=== PATIENT | male | born 1970 | race Caucasian/White ===

== ENCOUNTER 2023-10-31 10:46 | Emergency (ER) | payer OTHER ==
--- OUTSIDE RECORDS SUMMARY | 2023-10-31 10:49 | XMS REPORT | Continuity of Care Document ---
Author Name Unknown Address [address] [place] [address] Abhay. [address] [place] [address] [facility] thconnect Address [address] [facility] Ab[address]. 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 [id number] [place] [id number] 2018 00:00:00 Problems Condition Name Condition Details Condition Category Status Onset Date Resolution Date Last Treatment Date Treating Clinician Comments Source Type 1 diabetes mellitus Type 1 Diabetes Mellitus Problem Active 04-13 00:00: 00 [facility] Impotence Impotence Problem Active 2018-02 00:00: 00 [facility] Hyperlipid emia Hyperlipid emia Problem Active 04-21 00:00: 00 [facility] Hypertensi ve disorder Hypertensi ve Disorder Problem Active 04-21 00:00: 00 [facility] Clinical finding Clinical Finding Problem Active 04-21 00:00: 00 [facility] Social History Smoking Status Start Date Stop Date Source Former Smoker [facility] Light Tobacco Smoker [facility] Medications Ordered Medication Name Filled Medication Name Start Date Stop Date Current Medication? Ordering Clinician Indication Dosage Frequency Signature (SIG) Comments Components Source Novolin N NPH U-100 Insulin isophane 100 unit/mL subcutaneou s susp Inject 30 units every day by subcutaneou s route. Novolin N NPH U-100 Insulin isophane 100 unit/mL subcutaneou s susp Inject 30 units every day by subcutaneou s route. No 30unit( s) Q1D Novolin N NPH U-100 Insulin isophane 100 unit/mL subcutaneo us susp Inject 30 units every day by subcutaneo us route. [facility] Novolin R Regular U-100 Insulin 100 unit/mL injection solution sliding scale Novolin R Regular U-100 Insulin 100 unit/mL injection solution sliding scale No Novolin R Regular U-100 Insulin 100 unit/mL injection solution sliding scale [facility] Novolog U-100 Insulin aspart 100 unit/mL subcutaneou s solution Use with insulin pump : TDD 100 Novolog U-100 Insulin aspart 100 unit/mL subcutaneou s solution Use with insulin pump : TDD 100 No Novolog U-100 Insulin aspart 100 unit/mL subcutaneo us solution Use with insulin pump : TDD 100 [facility] e Vital Signs Vital Name Observation Time Observation Value Comments S ource BP Diastolic 2021-09-13 00:00:00 84 mm[Hg] [facility] Height 2021-09-13 00:00:00 70.2 [in_i] [facility] BMI (Body Mass Index) 2021-09-13 00:00:00 21.7 kg/m2 [facility] BP Systolic 2021-09-13 00:00:00 128 mm[Hg] [facility] Body Weight 2021-09-13 00:00:00 2432 [oz_av] [facility] BP Diastolic 2020-04-13 00:00:00 77 mm[Hg] [facility] Height 2020-04-13 00:00:00 69 [in_i] [facility] BMI (Body Mass Index) 2020-04-13 00:00:00 25.1 kg/m2 [facility] BP Systolic 2020-04-13 00:00:00 115 mm[Hg] [facility] Body Weight 2020-04-13 00:00:00 170 [lb_av] [facility] Plan of Care Planned Activity Planned Date Details Comments Source Diagnostic Test Pending 2021-09-13 00:00:00 lipid panel, serum [code = lipid panel, serum] [facility] Diagnostic Test Pending 2021-09-13 00:00:00 CMP, serum or plasma [code = CMP, serum or plasma] [facility] Diagnostic Test Pending 2021-09-13 00:00:00 CBC w/ auto diff [code = CBC w/ auto diff] [facility] Diagnostic Test Pending 2021-09-13 00:00:00 TSH, serum or plasma [code = TSH, serum or plasma] [facility] Diagnostic Test Pending 2021-09-13 00:00:00 HbA1c (hemoglobin A1c), blood [code = HbA1c (hemoglobin A1c), blood] [facility] Diagnostic Test Pending 2021-09-13 00:00:00 urinalysis complete, reflex culture [code = urinalysis complete, reflex culture] [facility] Diagnostic Test Pending 2021-09-13 00:00:00 PSA, serum or plasma [code = PSA, serum or plasma] [facility] Diagnostic Test Pending 2020-04-13 00:00:00 CMP, serum or plasma [code = CMP, serum or plasma] [facility] Diagnostic Test Pending 2020-04-13 00:00:00 microalbumin/creati nine, mass ratio, urine [code = microalbumin/creati nine, mass ratio, urine] [facility] Diagnostic Test Pending 2020-04-13 00:00:00 TSH, serum or plasma [code = TSH, serum or plasma] [facility] Diagnostic Test Pending 2020-04-13 00:00:00 T4, free, serum [code = T4, free, serum] [facility] Diagnostic Test Pending 2020-04-13 00:00:00 CBC w/ auto diff [code = CBC w/ auto diff] [facility] Diagnostic Test Pending 2020-04-13 00:00:00 lipid panel, serum [code = lipid panel, serum] [facility] Diagnostic Test Pending 2020-04-13 00:00:00 C-peptide, serum [code = C-peptide, serum] [facility] Diagnostic Test Pending 2020-04-13 00:00:00 diabetes panel, serum [code = diabetes panel, serum] [facility] Instructions [facility] Encounters Start Date/Time End Date/Time Encounter Type Admission Type Attending Clinicians Care Facility Care Department Encounter ID Source 2021-09-21 00:00:00 2021-09-21 00:00:00 Outpatient Shield [facility] [id number] [facility] 2021-09-14 00:00:00 2021-09-14 00:00:00 Outpatient Shield [facility] [id number] [facility] 2021-09-13 10:46:00 2021-09-13 10:46:00 Outpatient Shield [facility] [id number] [facility] 2021-09-13 00:00:00 2021-09-13 00:00:00 Danii Swenson, DISH UP PERSON: [address] [facility] [address] [address] , Ph. [facility] [id number] [facility] 2021-09-09 01:34:00 2021-09-09 01:34:00 Outpatient Shield [facility] [id number] [facility] 2020-05-01 09:44:00 2020-05-01 09:44:00 Outpatient Daniel_T VFP [facility]FP [id number] [facility] 2020-04-29 11:29:00 2020-04-29 11:29:00 Outpatient Daniel_T VFP VFP [id number] [facility] 2020-04-25 01:03:00 2020-04-25 01:03:00 Outpatient Daniel_T VFP VFP [id number] [facility] 2020-04-15 07:15:00 2020-04-15 07:15:00 Outpatient Daniel_T VFP VFP [id number] [facility] 2020-04-13 05:54:00 2020-04-13 05:54:00 Outpatient Daniel_T VFP VFP [id number] [facility] 2020-04-13 00:00:00 2020-04-13 00:00:00 Luiz Diallo MD: [id number], [address], [place] [address] , Ph. P [place] - [id number] [facility] 2020-01-13 03:11:00 2020-01-13 03:11:00 Outpatient Yoel_Tania [facility] [id number] [facility]
[2023-10-31 11:33] LABS: Absolute Eosinophils 0.2 K/uL (0-0.5); Absolute Lymphocytes (CBC) 1.1 K/uL (0.7-4.9); Absolute Monocytes 0.5 K/uL (0.1-1.3); Absolute Neutrophil 6.1 K/uL (1.8-8.0); Basophils % 0.6 % (0-1.3); Eosinophils % 1.9 % (0-4.4); Hematocrit 43.2 % (39.6-49.0); Hemoglobin 14.1 g/dL (13.6-17.9); MCH 30.6 pg (27.0-35.0); MCHC 32.6 g/dL (32.0-36.0); MCV 93.9 fL (80-100); Monocytes % 5.7 % (3.3-12.3); Neutrophils % 77.8 % (41.7-73.7); Platelets 279 thou/uL (152-406); Red Cell Distribution Width 12.8 % (12.1-15.2)
[2023-10-31 11:50] LABS: BUN Blood Urea Nitrogen 12 mg/dL (7-18); Bicarbonate 25 mEq/L (21-32); Glomerular Filtration Rate 84 ml/min (=/>90); Glucose Level 319 mg/dL (74-106); Sodium Level 135 mEq/L (136-145)
[2023-10-31 11:52] LABS: Troponin High Sensitivity < 3.0 pg/mL (<58.9)
--- NOTE | 2023-10-31 12:11 | ER ---
Nurse's Notes [facility] Name: Cirilo Venegas Age: 53 yrs Sex: Male : 1970 Arrival Date: 10/31/2023 Time: 10:46 Bed 5 Private MD: Diagnosis: Vasovagal syncope Presentation: 10/30 10:50 Chief complaint: EMS states: Pt brought in via EMS from [facility] for syncopal episode. dd2 Per EMS, Pt was at the clinic for treatment and received a Rocephin IM inj to the L Buttocks and passed out. When pt came to, he was diaphoretic. Nurse was scared it was an anaphylactic reaction and administered EPI 0.31 mg. Pt denies, itching, rash or sob. Coronavirus screen: At this time, the client does not indicate any symptoms associated with coronavirus-19. Ebola Screen: No symptoms or risks identified at this time. Initial Sepsis Screen: Does the patient meet any 2 criteria? No. Patient's initial sepsis screen is negative. Does the patient have a suspected source of infection? No. Patient's initial sepsis screen is negative. Risk Assessment: Do you want to hurt yourself or someone else? Patient reports no desire to harm self or others. Onset of symptoms was October 31, 2023. Care prior to arrival: Medication(s) given: Epi 0.31 mg [facility] IV initiated. 20 GA, in the right forearm, Glucose check: 247. 10:50 Method Of Arrival: EMS: [facility] dd2 10:50 Acuity: JOSE 3 dd2 Triage Assessment: 10:57 General: Appears in no apparent distress. Behavior is calm, cooperative, appropriate dd2 for age. Pain: Denies pain. EENT: No deficits noted. No signs and/or symptoms were reported regarding the EENT system. Neuro: Level of Consciousness is awake, alert, obeys commands, Oriented to person, place, time, situation, Appropriate for age Reports a syncopal episode. Cardiovascular: No deficits noted. Denies chest pain. Respiratory: No deficits noted. Airway is patent Respiratory effort is even, unlabored, Respiratory pattern is regular, symmetrical. GI: No deficits noted. No signs and/or symptoms were reported involving the gastrointestinal system. : No deficits noted. Derm: No deficits noted. No signs and/or symptoms reported regarding the dermatologic system. Musculoskeletal: No deficits noted. No signs and/or symptoms reported regarding the musculoskeletal system. Historical: - Allergies: 10:57 No Known Allergies; dd2 - PMHx: 10:57 Diabetes mellitus; dd2 - Immunization history:: Adult Immunizations unknown. - Infectious Disease History:: Denies. - Social history:: Smoking status: Patient denies any tobacco usage or history of. Screenin:08 [facility] ED Fall Risk Assessment (Adult) History of falling in the last 3 months, dd2 including since admission Yes- single mechanical fall (1 pt) Confusion or Disorientation No (0 pts) Intoxicated or Sedated No (0 pts) Impaired Gait No (0 pts) Mobility Assist Device Used No (0 pt) Altered Elimination No (0 pt) Score/Fall Risk Level 0 - 2 = Low Risk Oriented to surroundings, Maintained a safe environment, Hourly rounding (assess needs \T\ fall precautionary measures) done. Abuse screen: Denies threats or abuse. Nutritional screening: No deficits noted. Tuberculosis screening: No symptoms or risk factors identified. Assessment: 11:08 General: Appears in no apparent distress. Behavior is calm, cooperative, appropriate dd2 for age. Pain: Denies pain. Neuro: No deficits noted. Level of Consciousness is awake, alert, obeys commands, Oriented to person, place, time, situation, Appropriate for age. Cardiovascular: No deficits noted. Rhythm is sinus tachycardia. Respiratory: No deficits noted. Airway is patent Respiratory effort is even, unlabored. GI: No deficits noted. No signs and/or symptoms were reported involving the gastrointestinal system. : No deficits noted. No signs and/or symptoms were reported regarding the genitourinary system. EENT: No deficits noted. No signs and/or symptoms were reported regarding the EENT system. Derm: No deficits noted. No signs and/or symptoms reported regarding the dermatologic system. Musculoskeletal: No deficits noted. No signs and/or symptoms reported regarding the musculoskeletal system. Vital Signs: 10:50 BP 129 / 83; Pulse 91; Resp 16; Temp 98.2; Pulse Ox 99% ; Weight 68.04 kg; dd2 11:10 BP 126 / 85; Pulse 90; Resp 16; Pulse Ox 99% ; dd2 12:00 BP 123 / 81; Pulse 86; Resp 16; Pulse Ox 99% ; dd2 ED Course: 10:48 Patient arrived in ED. dd2 10:50 SADE SIBLEY, RN is Primary Nurse. dd2 10:56 Juju Dickerson MD is Attending Physician. sp3 10:57 Triage completed. dd2 10:57 Arm band placed on right wrist. Patient placed in an exam room, on a stretcher, on dd2 telemetry monitor, on pulse oximetry. 11:06 EKG done, by ED staff, reviewed by Juju Dickerson MD. Maintain EMS IV. Dressing intact. ko1 Site clean \T\ dry. Gauge \T\ site: 20g right FA. Flushed with 10 mL NS. 11:08 Patient has correct armband on for positive identification. Bed in low position. Call dd2 light in reach. Side rails up X 1. Provided Education on: call light, fall risk, procedures. Client placed on continuous cardiac and pulse oximetry monitoring. NIBP monitoring applied. playground monitor on. Door closed. Warm blanket given. Pillow given. 11:08 No provider procedures requiring assistance completed. dd2 11:29 Basic Metabolic Panel Sent. dd2 11:29 CBC with Diff Sent. dd2 11:29 Troponin HS Sent. dd2 12:00 IV discontinued, intact, bleeding controlled, No redness/swelling at site. Pressure dd2 dressing applied. Administered Medications: No medications were administered Medication: 11:08 VIS not applicable for this client. dd2 Point of Care Testing: Blood Glucose: 10:57 Blood Glucose: 247 mg/dL; dd2 Ranges: Outcome: 12:00 Discharged to home ambulatory, dd2 12:00 Condition: stable 12:00 Discharge instructions given to patient, Instructed on discharge instructions, follow up and referral plans. Demonstrated understanding of instructions, follow-up care, 12:10 Discharge ordered by . sp3 12:51 Patient left the ED. dd2 Signatures: Juju Dickerson MD MD sp3 Ambar Lira RN RN ko1 SADE SIBLEY RN RN dd2
--- NOTE | 2023-10-31 12:11 | EDPHYS ---
Physician Documentation [facility] Name: Cirilo Venegas Age: 53 yrs Sex: Male : 1970 Arrival Date: 10/31/2023 Time: 10:46 Bed 5 Private MD: ED Physician Juju Dickerson HPI: 10/30 11:07 This 53 yrs old Male presents to ER via EMS with complaints of Syncope. sp3 11:07 53-year-old male with history of diabetes presents via EMS from [facility] for alleged sp3 allergic reaction. Patient received Rocephin IM for UTI/STI prophylactic treatment after which she had a syncopal episode. Neurosteroid gave epinephrine thinking it was anaphylaxis however I am not highly suspicious of anaphylaxis at this time. Patient had brief syncope with subsequent awakening. Patient currently has no symptoms, rash, mouth or throat swelling, chest pain, shortness of breath, or any other signs or symptoms on ROS at this time.. Historical: - Allergies: 10:57 No Known Allergies; dd2 - PMHx: 10:57 Diabetes mellitus; dd2 - Immunization history:: Adult Immunizations unknown. - Infectious Disease History:: Denies. - Social history:: Smoking status: Patient denies any tobacco usage or history of. ROS: 11:09 Constitutional: Negative for fever, chills, and weight loss, Eyes: Negative for injury, sp3 pain, redness, and discharge, ENT: Negative for injury, pain, and discharge, Neck: Negative for injury, pain, and swelling, Cardiovascular: Negative for chest pain, palpitations, and edema, Respiratory: Negative for shortness of breath, cough, wheezing, and pleuritic chest pain, Abdomen/GI: Negative for abdominal pain, nausea, vomiting, diarrhea, and constipation, Back: Negative for injury and pain, MS/Extremity: Negative for injury and deformity, Skin: Negative for injury, rash, and discoloration, Psych: Negative for depression, anxiety, suicide ideation, homicidal ideation, and hallucinations, Allergy/Immunology: Negative for hives, rash, and allergies, Endocrine: Negative for neck swelling, polydipsia, polyuria, polyphagia, and marked weight changes, 11:09 All other systems are negative, Exam: 11:09 Constitutional: This is a well developed, well nourished patient who is awake, alert, sp3 and in no acute distress. Head/Face: Normocephalic, atraumatic. Eyes: Pupils equal round and reactive to light, extra-ocular motions intact. Lids and lashes normal. Conjunctiva and sclera are non-icteric and not injected. Cornea within normal limits. Periorbital areas with no swelling, redness, or edema. ENT: Nares patent. No nasal discharge, no septal abnormalities noted. External auditory canals are clear. Oropharynx with no redness, swelling, or masses, exudates, or evidence of obstruction, uvula midline. Mucous membranes moist. Neck: Trachea midline, no thyromegaly or masses palpated, and no cervical lymphadenopathy. Supple, full range of motion without nuchal rigidity, or vertebral point tenderness. No Meningismus. Chest/axilla: Normal chest wall appearance and motion. Nontender with no deformity. No lesions are appreciated. Cardiovascular: Regular rate and rhythm with a normal S1 and S2. No gallops, murmurs, or rubs. Normal PMI, no JVD. No pulse deficits. Respiratory: Lungs have equal breath sounds bilaterally, clear to auscultation and percussion. No rales, rhonchi or wheezes noted. No increased work of breathing, no retractions or nasal flaring. Abdomen/GI: Soft, non-tender, with normal bowel sounds. No distension or tympany. No guarding or rebound. No evidence of tenderness throughout. Back: No spinal tenderness. No costovertebral tenderness. Full range of motion. Skin: Warm, dry with normal turgor. Normal color with no rashes, no lesions, and no evidence of cellulitis. MS/ Extremity: Pulses equal, no cyanosis. Neurovascular intact. Full, normal range of motion. Neuro: Awake and alert, GCS 15, oriented to person, place, time, and situation. Cranial nerves II-XII grossly intact. Motor strength 5/5 in all extremities. Sensory grossly intact. Cerebellar exam normal. Normal gait. Psych: Awake, alert, with orientation to person, place and time. Behavior, mood, and affect are within normal limits. 11:09 ECG was reviewed by the Attending Physician. EKG demonstrates normal sinus rhythm at 80 bpm with normal intervals, normal QRS, normal axis, normal ST/T-segment's without evidence of acute ischemia. Vital Signs: 10:50 BP 129 / 83; Pulse 91; Resp 16; Temp 98.2; Pulse Ox 99% ; Weight 68.04 kg; dd2 11:10 BP 126 / 85; Pulse 90; Resp 16; Pulse Ox 99% ; dd2 12:00 BP 123 / 81; Pulse 86; Resp 16; Pulse Ox 99% ; dd2 MDM: 10:57 Patient medically screened. sp3 11:11 Data reviewed: vital signs, nurses notes, lab test result(s), EKG. ED course: sp3 53-year-old male with probable vasovagal syncope versus other syncope. Patient is not having anaphylaxis or allergic reaction. Epinephrine was given at [facility] 0.3 mg IM. At this time we will watch patient, obtain general labs with troponin and obtain EKG. If workup negative and patient continues to be asymptomatic we will discharge him home to PCP follow-up.. 10/30 10:57 Order name: Basic Metabolic Panel; Complete Time: 12:10 sp3 10/30 10:57 Order name: CBC with Diff; Complete Time: 12:10 3 10/30 10:57 Order name: Troponin HS; Complete Time: 12:10 3 10/30 10:57 Order name: EKG; Complete Time: 10:58 3 10/30 10:57 Order name: Cardiac monitoring; Complete Time: 11:06 3 10/30 10:57 Order name: EKG - Nurse/Tech; Complete Time: 11:06 3 10/30 10:57 Order name: IV Saline Lock; Complete Time: 11:06 3 10/30 10:57 Order name: Labs collected and sent; Complete Time: 11:29 sp3 Administered Medications: No medications were administered Point of Care Testing: Blood Glucose: 10:57 Blood Glucose: 247 mg/dL; dd2 Ranges: Critical Glucose Levels:Adult <50 mg/dl or >400 mg/dl <40 mg/dl or >180 mg/dl Disposition Summary: 10/31/23 12:10 Discharge Ordered Notes: Location: Home sp3 Condition: Stable sp3 Diagnosis - Vasovagal syncope sp3 Followup: sp3 - With: Private Physician - When: Upon discharge from the Emergency Department - Reason: Continuance of care Discharge Instructions: - Discharge Summary Sheet sp3 - Syncope sp3 Forms: - Medication Reconciliation Form sp3 - Antibiotic Education sp3 - Prescription Opioid Use sp3 - Patient Portal Instructions sp3 - Leadership Thank You Letter sp3 Signatures: Dispatcher [employer] EDJuju Mejía MD MD sp3 SADE SIBLEY RN RN dd2
[2023-10-31 13:11] VITALS: TEMP 98.2; O2SAT 99
[2023-10-31 13:14] VITALS: BP 123/81
--- NOTE | 2023-11-02 16:29 | EKG ---
Test Date: 2023-10-31 Test Time: 10:59:53 [employer]: NO MEASUREMENT RESULTS: Intervals: Rate: 80 ME: 152 QRSD: 78 QT: 380 QTc: 438 [place]: P: 85 ME: 152 QRS: 67 T: 75 INTERPRETIVE STATEMENTS: Normal sinus rhythm Normal ECG No previous ECG available for comparison Electronically Signed On 11-02-23 16:23:53 CDT by Michael Camp
== END 2023-10-31 12:51 | disposition home or self-care (01) ==
LOC: ER 10:46
DX: R55 Syncope and collapse (principal); E11.9 Type 2 diabetes mellitus without complications
CPT/HCPCS: 36415; 80048; 84484; 85025; 93005; 99284